=== PATIENT | female | born 1930 | race Caucasian/White ===

== ENCOUNTER 2016-08-21 18:00 | Emergency (ER) | payer OTHER, BC ==
[~2016-08-21] VITALS: Ht 154.9 cm; Wt 67.5 kg
[2016-08-21 18:49] LABS: EOSINOPHIL (%) 0.7 % (0-5); EOSINOPHIL COUNT 0.1 K/uL (0-0.3); HEMATOCRIT 46.4 % (36.0-46.0); IMMATURE GRANULOCYTE (%) 0.3 % (0.0-0.7); IMMATURE GRANULOCYTE COUNT 0.2 K/uL; MCH 31.6 PG (29.0-34.0); MCHC 34.3 G/DL (30.0-36.0); MCV 92.2 FL (83-99); MEAN PLAT.VOLUME 11.2 uM^3 (9.5-12.4); MONOCYTE (%) 8.1 % (3-12); MONOCYTE COUNT 0.6 K/uL (0-0.8); NEUTROPHIL (%) 62.4 % (45-76); NEUTROPHIL COUNT 4.5 K/uL (1.8-6.4); PLATELET COUNT 230 K/uL (156-360); RBC DIS.WIDTH-CV 12.8 % (11.8-14.6); RED BLOOD COUNT 5.03 M/uL (3.80-5.20); WHITE BLOOD COUNT 7.2 K/uL (4.1-10.2)
[2016-08-21 19:06] LABS: CHLORIDE 105 mEq/L (99-109); POTASSIUM 4.6 mEq/L (3.7-5.4); SODIUM 138 mEq/L (136-147)
[2016-08-21 19:08] LABS: GLUCOSE 130 mg/dL (70-99)
[2016-08-21 19:09] LABS: ANION GAP 11 MEQ/L (2-14)
[2016-08-21 19:10] LABS: TOTAL BILIRUBIN 0.6 mg/dL (0.0-1.0)
[2016-08-21 19:11] LABS: ALKALINE PHOSPHATASE 72 IU/L (3-129)
[2016-08-21 19:13] LABS: UREA NITROGEN (BUN) 18 mg/dL (9-23)
[2016-08-21 19:15] LABS: GFR ESTIMATE (CALCULATED) 56 mL/min/; LIPASE 25 U/L (1.0-51.0)
[2016-08-21 20:27] LABS: ADD MIUA? YES; BILIRUBIN NEGATIVE; BLOOD SMALL; COLOR STRAW ((YELLOW)); GLUCOSE (STRIP) NEGATIVE; KETONES 5; LEUKOCYTES NEGATIVE; NITRITE NEGATIVE; PROTEIN (STRIP) NEGATIVE; SPECIFIC GRAVITY 1.009 (1.000-1.030); UROBILINOGEN 0.2 MG/DL (0.2-1.0)
[2016-08-21 20:29] LABS: BACTERIA NONE SEEN /HPF; EPITHELIAL CELLS RARE /HPF; MUCUS NONE SEEN /LPF; RED BLOOD CELLS 0-5 /HPF (0-5); WHITE BLOOD CELLS 0-5 /HPF (0-5)
[2016-08-21 20:30] VITALS: BP 145/83
== END 2016-08-21 21:34 | disposition home or self-care (01) ==
LOC: EME 18:00
PROVIDERS: Emergency Medicine
DX: I10 Essential (primary) hypertension (principal); F41.9 Anxiety disorder, unspecified; R10.10 Upper abdominal pain, unspecified; K21.9 Gastro-esophageal reflux disease without esophagitis; Z85.3 Personal history of malignant neoplasm of breast
CPT/HCPCS: 74176; 80053; 81003; 83690; 85025; 99281; 99284